=== PATIENT | male | born 1975 | race Two or more races ===

== ENCOUNTER 2017-01-07 13:30 | Emergency (ER) | payer BC ==
[~2017-01-07] VITALS: Ht 160 cm; Wt 85.7 kg
[2017-01-07 13:40] VITALS: BP 144/91
[2017-01-07] MEDS ORDERED: PROPARACAINE HCL 0.5% OPTH(EYE) SOL 15ML OP ONE (15:00)
[2017-01-07] MEDS ORDERED: FLUORESCEIN SOD 1 MG TEST STRIP LEFTEYE ONE (15:00)
== END 2017-01-07 16:18 | disposition home or self-care (01) ==
LOC: ER 13:30
DX: S05.92XA Unspecified injury of left eye and orbit, initial encounter (principal); W22.8XXA Striking against or struck by other objects, initial encounter; Y93.89 Activity, other specified; Y99.8 Other external cause status; Y92.89 Other specified places as the place of occurrence of the external cause